=== PATIENT | male | born 1960 | race Two or more races ===

== ENCOUNTER → 2024-01-30 | Emergency (ER) | payer OTHER ==
[~2024-01-30] VITALS: Ht 175.3 cm; Wt 78.5 kg
[~2024-01-30] MED LIST: ADVIL LIQUI-GE200 MG PO; CIPRO500 MG PO; PYRIDIUM200 MG PO; TAMS0.4C PO; TETANUS & DIPHTHERIA TOX,ADULT 0.5 ML VIAL IM ONE
== END | disposition home or self-care (01) ==
LOC: ER 12:49
DX: S01.122A Laceration with foreign body of left eyelid and periocular area, initial encounter (principal); W45.8XXA Other foreign body or object entering through skin, initial encounter; Y93.79 Activity, other specified sports and athletics; Y92.39 Other specified sports and athletic area as the place of occurrence of the external cause